=== PATIENT | male | born 1960 | race Caucasian/White ===

== ENCOUNTER 2023-10-08 16:14 | Emergency (ER) | payer MEDICAID, OTHER ==
[~2023-10-08] VITALS: Ht 175.3 cm; Wt 64.4 kg
[~2023-10-08 16:14] MED LIST: APIX5TAB PO; CHLO5CAP3 PO; LACT10SO58 PO; Multivit W/Minerals PO; Thiamine HCL PO
[2023-10-08 16:58] VITALS: TEMP 98.9
[2023-10-08 17:25] VITALS: O2SAT 97
[2023-10-08 18:37] VITALS: BP 100/64; O2SAT 98
== END 2023-10-08 18:38 ==
LOC: ER 16:16
DX: U07.1 COVID-19 (principal); Z87.09 Personal history of other diseases of the respiratory system; Z87.448 Personal history of other diseases of urinary system; Z59.00 Homelessness unspecified
CPT/HCPCS: 71045-TC